=== PATIENT | female | born 1965 ===

== ENCOUNTER 2017-02-01 09:48 | Emergency (ER) | payer OTHER ==
[2017-02-01 10:01] VITALS: TEMP 98.3
--- NOTE | 2017-02-01 10:40 | CP.PCM.PN ---
Objective - Vital Signs/Intake and Output Vital Signs (last 24 hours): Temp Pulse Resp BP Pulse Ox 98.3 F 82 20 120/84 100 02/01/17 10:00 02/01/17 10:00 02/01/17 10:00 02/01/17 10:00 02/01/17 10:00 - Medications Medications: Current Medications Ketorolac Tromethamine (Toradol) 30 mg IM STAT STA Stop: 02/01/17 10:41
--- NOTE | 2017-02-01 10:41 | C.PDOC ---
History Of Present Illness CC: L shoulder pain 51 year old female with no PMHx presents with 3-4 week history of left shoulder pain. Patient reports left shoulder pain began all of a sudden and has progressively worsened. She has decreased ROM secondary to pain which is rated at a 5 out of 10. Denies trauma or any inciting event. This is the first time this has ever happened. Admits to taking care of 1.5 year old child at home whom she picks up often. Denies employment. She denies chest pain, left neck pain, palpitations, fevers, chills, diaphoresis, nausea. Denies extremity weakness, swelling, numbness and tingling, or coolness to touch. (Nia Ramon) History Per: Patient History/Exam Limitations: no limitations Onset/Duration Of Symptoms: Days Severity: Mild Pain Scale Rating Of: 5 Location: left shoulder joint Quality: sharp Reports Recent Trauma: denies Time Seen by Provider: 02/01/17 10:07 Chief Complaint (Nursing): Upper Extremity Problem/Injury Past Medical History Family History: States: No Known Family Hx - Social History Hx Alcohol Use: No Hx Substance Use: No Review Of Systems Constitutional: Negative for: Fever, Chills Cardiovascular: Negative for: Chest Pain, Palpitations, Edema, Light Headedness Respiratory: Negative for: Cough, Shortness of Breath Gastrointestinal: Negative for: Nausea, Vomiting, Abdominal Pain, Diarrhea Musculoskeletal: Positive for: Shoulder Pain. Negative for: Neck Pain, Arm Pain , Back Pain Skin: Negative for: Rash, Lesions, Bruising Neurological: Negative for: Weakness, Numbness Physical Exam - Physical Exam Appears: Well Skin: Normal Color, Warm Head: Atraumatic, Normacephalic Lips: Normal Appearing Neck: Normal, Normal ROM, No Midline Cervical Tenderness, No Paracervical Tenderness, No Step Off Deformity Chest: Symmetrical Cardiovascular: Rhythm Regular Respiratory: Normal Breath Sounds Gastrointestinal/Abdominal: Normal Exam, Soft, No Tenderness, No Distention Back: Normal Inspection, No CVA Tenderness, No Vertebral Tenderness Extremity: No Normal ROM, Tenderness (over humerus ) Neurological/Psych: Oriented x3, Normal Speech Disoriented To: Person, Place, Time ED Course And Treatment O2 Sat by Pulse Oximetry: 100 Medical Decision Making Medical Decision Makin51 year old female with new onset of left shoulder bursitis. L shoulder pain X ray Impression: Mild osteoarthrosis. Given one dose of Toradol 30 mg IM in the ED. Patient instructed to take OTC Ibuprofen 400-600 mg PO every 6-8 hours PRN for pain. Patient to follow up with her PMD of choice or at [facility] within 1 week for orthopaedic surgeon referral. (Nia Ramon) Seen and examined with resident. 51 y/o F p/w L shoulder pain x weeks without trauma. Tenderness over focal area with pain with abduction. XR negative. Discharged home, f/u orthopedics. (Cb Canales) Disposition - Disposition Disposition Time: 12:00 - POA Present On Arrival: None - Disposition Disposition: HOME/ ROUTINE Condition: STABLE Prescriptions: Ibuprofen [Motrin] 1 tab PO Q6 #30 tab Instructions: Shoulder Bursitis (ED) Forms: Gen Discharge Inst French - Clinical Impression Clinical Impression: Shoulder pain
--- NOTE | 2017-02-01 11:18 | RAD ---
PROCEDURE: Radiographs of the Left Shoulder HISTORY: left shoulder pain COMPARISON: No prior. FINDINGS: BONES: No fracture. JOINTS: Glenohumeral and acromioclavicular mild osteoarthritis. SOFT TISSUES: Normal. OTHER FINDINGS: None. IMPRESSION: Mild osteoarthrosis.
[2017-02-01 12:13] VITALS: BP 132/81; PULSE 70; RESP 16; O2SAT 97
== END 2017-02-01 12:12 | disposition home or self-care (01) ==
LOC: C.ER 09:48
DX: M25.512 Pain in left shoulder (principal)
CPT/HCPCS: 73030; 96372; 99284; J1885

== ENCOUNTER 2017-07-23 09:28 | Day surgery (SDC) | payer OTHER ==
[2017-06-14 10:54] VITALS: BMI 29.2
[2017-07-23 10:42] VITALS: O2SAT 100
[2017-07-23 14:33] VITALS: BP 112/67; PULSE 88; RESP 20; TEMP 98.9
== END 2017-07-23 14:10 | disposition home or self-care (01) ==
LOC: C.ENDO 09:28
PROVIDERS: ATTEND Internal Medicine Gastroenterology
DX: Z12.11 Encounter for screening for malignant neoplasm of colon (principal); K59.00 Constipation, unspecified; D12.2 Benign neoplasm of ascending colon; K64.8 Other hemorrhoids

== ENCOUNTER 2018-12-02 11:16 | Outpatient (CLI) | payer OTHER | END 2018-12-02 11:17 | disposition home or self-care (01) | LOC: C.MAMMO 11:16 ==